=== PATIENT | female | born 1965 | race Caucasian/White ===

== ENCOUNTER 2016-07-20 08:57 | Outpatient (CLI) | payer MEDICARE, MEDICAID ==
[2016-07-20 09:35] LABS: % BASOPHILS 0.9 % (0.0-2.0); % EOSINOPHILS 6.3 % (0.0-5.0); % LYMPHOCYTES 29.1 % (20.0-50.0); % MONOCYTES 4.8 % (2.0-10.0); % NEUTROPHILS 58.9 % (40.0-80.0); HEMATOCRIT 42.5 % (35.0-45.0); HEMOGLOBIN 14.7 gm/dL (11.7-15.5); MEAN CELL VOLUME 83.7 fl (81-100); MEAN CORPUSCULAR HEMOGLOBIN 28.9 pg (27.0-31.0); MEAN CORPUSCULAR HGB CONC 34.5 pg (28.0-36.0); MEAN PLATELET VOLUME 8.6 fl; NEUTROPHILE ABSOLUTE 3.8 Th/cmm (1.8-8.0); PLATELET COUNT 290 Th/cmm (150-400); RED BLOOD COUNT 5.08 Mil/cmm (3.80-5.10); WHITE BLOOD COUNT 6.5 Th/cmm (4.8-10.8)
[2016-07-20 10:35] LABS: ALB/GLOB RATIO 1.4 (1.0-1.8); ALKALINE PHOSPHATASE 111 U/L (34-104); ANION GAP 9.4 (7.0-16.0); BILIRUBIN,TOTAL 0.2 mg/dL (0.3-1.0); BUN - UREA NITROGEN 30 mg/dL (7-25); BUN/CREATININE RATIO 42.9; CALCIUM SERUM 9.7 mg/dL (8.6-10.3); CARBON DIOXIDE 24.6 mEq/L (21.0-31.0); CHLORIDE 109 mEq/L (98-107); CHOLESTEROL 147 mg/dL (<200); CREATININE - SERUM 0.7 mg/dL (0.6-1.2); GLUCOSE 103 mg/dL (70-105); SGOT 13 U/L (13-39); SGPT/ALT 14 U/L (7-52); SODIUM SERUM 139 mEq/L (136-145); TRIGLYCERIDES 75 mg/dL (<150)
== END 2016-07-20 09:45 | disposition home or self-care (01) ==
LOC: LAB 08:57
DX: Z00.00 Encounter for general adult medical examination without abnormal findings (principal); I70.0 Atherosclerosis of aorta; E03.9 Hypothyroidism, unspecified; R73.02 Impaired glucose tolerance (oral)
CPT/HCPCS: 36415-UA; 80053-TC; 80061-TC; 83036-90; 84443-TC; 85025-TC